=== PATIENT | female | born 1995 | race Caucasian/White ===

== ENCOUNTER 2020-07-04 08:00 | Outpatient (RCR) | payer OTHER ==
[2020-07-01 08:39] VITALS: BP 113/81; PULSE 65; TEMP 98.1
--- NOTE | 2020-07-01 10:26 | NUR ---
Pt escorted out following initial thyrogen injection. She has tolereated well, no complaints at this time. She will return tomorrow morning for second dose.
[2020-07-02 08:20] VITALS: BP 114/72; PULSE 60; TEMP 97.6
[~2020-07-04] VITALS: Ht 162.6 cm; Wt 59.4 kg
[~2020-07-04 08:00] MED LIST: CYMBALTA 60MG60 MG PO; NEURONTIN300 MG/CAP PO; SYNTHROID0.125 MG/T PO; ZANAFLEX 4MG TAB4 MG PO
[2020-08-25] MEDS ORDERED: CELEBREX 1100 MG/CAP PO (08:41)
[2020-08-25] MEDS ORDERED: NATURAL MAGNES200 MG PO (08:41)
[2020-08-25] MEDS ORDERED: PRENATAL VIT + LOWFE PO (08:41)
[2020-08-25] MEDS ORDERED: ATARAX 25MG25 MG/TAB PO (08:42)
== END 2020-09-29 | disposition home or self-care (01) ==
LOC: COL.RAD
PROVIDERS: Student in an Organized Health Care Education/Training Program
DX: C73 Malignant neoplasm of thyroid gland (principal)
CPT/HCPCS: A9516; J3240

== ENCOUNTER 2020-09-03 08:00 | Outpatient (RCR) | payer OTHER ==
[2020-08-25 08:34] VITALS: BP 102/63; PULSE 66; TEMP 98.7
[2020-08-26 08:40] VITALS: BP 116/57; PULSE 76; TEMP 98.3
[~2020-09-03] VITALS: Ht 162.6 cm; Wt 62.8 kg
[~2020-09-03 08:00] MED LIST changes: +ATARAX 25MG25 MG/TAB PO; +CELEBREX 1100 MG/CAP PO; +NATURAL MAGNES200 MG PO; +PRENATAL VIT + LOWFE PO
== END 2020-11-23 | disposition home or self-care (01) ==
LOC: COL.RAD
PROVIDERS: Student in an Organized Health Care Education/Training Program
DX: C73 Malignant neoplasm of thyroid gland (principal)
CPT/HCPCS: A9517; J3240

== ENCOUNTER → 2020-09-04 | Outpatient (CLI) | payer OTHER | LOC: MHCPAIN 08:54 | DX: M47.812 Spondylosis without myelopathy or radiculopathy, cervical region (principal); M54.12 Radiculopathy, cervical region; R51.9 Headache, unspecified | CPT/HCPCS: G0463 ==

== ENCOUNTER → 2020-09-18 | Outpatient (CLI) | payer OTHER | LOC: MHCPAIN 08:34 | DX: M47.812 Spondylosis without myelopathy or radiculopathy, cervical region (principal); M54.12 Radiculopathy, cervical region | CPT/HCPCS: J1100; Q9967 ==

== ENCOUNTER → 2020-10-06 | Outpatient (CLI) | payer OTHER | LOC: MHCPAIN 10:56 | DX: M47.812 Spondylosis without myelopathy or radiculopathy, cervical region (principal); M54.2 Cervicalgia; R51.9 Headache, unspecified | CPT/HCPCS: G0463 ==

== ENCOUNTER → 2020-10-23 | Outpatient (CLI) | payer OTHER | LOC: MHCPAIN 07:53 | DX: M47.812 Spondylosis without myelopathy or radiculopathy, cervical region (principal); M54.2 Cervicalgia; R51.9 Headache, unspecified | CPT/HCPCS: J0461 ==

== ENCOUNTER → 2020-11-11 | Outpatient (CLI) | payer OTHER | LOC: MHCPAIN 09:42 | DX: M47.812 Spondylosis without myelopathy or radiculopathy, cervical region (principal); M54.2 Cervicalgia; R51.9 Headache, unspecified; G89.29 Other chronic pain | CPT/HCPCS: G0463 ==

== ENCOUNTER → 2020-11-27 | Outpatient (CLI) | payer OTHER | LOC: MHCPAIN 08:07 | DX: M47.812 Spondylosis without myelopathy or radiculopathy, cervical region (principal); M54.2 Cervicalgia; R51.9 Headache, unspecified ==

== ENCOUNTER → 2020-12-03 | Outpatient (CLI) | payer OTHER | LOC: MHCPAIN 08:02 | DX: M47.812 Spondylosis without myelopathy or radiculopathy, cervical region (principal); M54.2 Cervicalgia; R51.9 Headache, unspecified; G89.29 Other chronic pain | CPT/HCPCS: G0463 ==

== ENCOUNTER → 2020-12-11 | Outpatient (CLI) | payer OTHER | LOC: MHCPAIN 12:10 | DX: M47.812 Spondylosis without myelopathy or radiculopathy, cervical region (principal); M54.2 Cervicalgia; R51.9 Headache, unspecified | CPT/HCPCS: J1100; J2250; J3010 ==

== ENCOUNTER → 2021-02-17 | Outpatient (CLI) | payer OTHER | LOC: MHCPAIN 12:21 | DX: M54.12 Radiculopathy, cervical region (principal); R51.9 Headache, unspecified; M25.512 Pain in left shoulder | CPT/HCPCS: G0463 ==

== ENCOUNTER 2021-05-28 11:00 | Outpatient (RCR) | payer OTHER ==
[2021-05-26 15:11] VITALS: BP 96/67; PULSE 86; TEMP 98.4
[2021-05-27 14:33] VITALS: BP 104/62; PULSE 87; TEMP 98.5
[~2021-05-28] VITALS: Ht 162.6 cm; Wt 62.5 kg
[~2021-05-28 11:00] MED LIST changes: +BUSPAR10 MG PO; +MAXALT10 MG PO; -SYNTHROID0.125 MG/T PO; +SYNTHROID0.2 MG/TAB PO
== END 2021-05-29 13:14 ==
LOC: COL.RAD 11:00
PROVIDERS: Student in an Organized Health Care Education/Training Program
DX: C73 Malignant neoplasm of thyroid gland (principal)
CPT/HCPCS: A9516; J3240

== ENCOUNTER → 2021-07-13 | Outpatient (CLI) | payer OTHER | LOC: COL.RAD 08:54 | DX: C73 Malignant neoplasm of thyroid gland (principal) | CPT/HCPCS: Q9967 ==

== ENCOUNTER → 2021-10-14 | Outpatient (CLI) | payer OTHER | LOC: COL.RAD 08:55 | DX: Z85.850 Personal history of malignant neoplasm of thyroid (principal); Z90.89 Acquired absence of other organs ==

== ENCOUNTER → 2021-10-15 | Outpatient (CLI) | payer OTHER | LOC: COL.RAD 07:56 | DX: R19.7 Diarrhea, unspecified (principal); R10.9 Unspecified abdominal pain; R11.0 Nausea; R14.0 Abdominal distension (gaseous) | CPT/HCPCS: A9541 ==

== ENCOUNTER → 2022-05-27 | Outpatient (CLI) | payer OTHER | LOC: COL.RAD 10:04 | DX: Z85.850 Personal history of malignant neoplasm of thyroid (principal); Z90.89 Acquired absence of other organs | CPT/HCPCS: Q9967 ==